=== PATIENT | female | born 1985 | race Caucasian/White ===

== ENCOUNTER 2017-11-03 20:32 | Emergency (ER) | payer MEDICAID ==
[~2017-11-03] VITALS: Ht 149.9 cm; Wt 68.0 kg
[2017-11-03 20:35] VITALS: Ht 149.9 cm; Wt 68.0 kg
[2017-11-03 22:13] VITALS: BP 121/75
== END 2017-11-03 22:32 | disposition home or self-care (01) ==
LOC: ED 20:32
DX: O20.0 Threatened abortion (principal)

== ENCOUNTER 2020-02-08 12:24 | Emergency (ER) | payer MEDICAID ==
[~2020-02-08] VITALS: Ht 152.4 cm; Wt 70.3 kg
[2020-02-08 12:26] VITALS: Ht 152.4 cm; Wt 70.3 kg
[2020-02-08 15:22] VITALS: BP 123/80
== END 2020-02-08 15:37 | disposition home or self-care (01) ==
LOC: ED 12:24
DX: J06.9 Acute upper respiratory infection, unspecified (principal); Z20.828 Contact with and (suspected) exposure to other viral communicable diseases
CPT/HCPCS: U0003